=== PATIENT | female | born 1975 | race Caucasian/White ===

== ENCOUNTER → 2021-01-25 | Outpatient (CLI) | payer BC ==
[~2021-01-25] MED LIST: CITA20; ERGO400 PO; LEVSOD75 PO; METPRE4DP PO; Percocet 5-3251 EACH PO; Robaxin-750750 MG PO; SERT100 PO; TOCO400; [UNRECOGNIZED DRUG - OTHER] PO
== END ==
LOC: LAB 10:30 → LAB SHORT 10:30 → LAB FUT 01-25 09:55 → EDSTATUS 01-25 09:55
DX: R19.7 Diarrhea, unspecified (principal)
CPT/HCPCS: 87015; 87045; 87046; 87205; 87899

== ENCOUNTER 2021-03-05 10:12 | Day surgery (SDC) | payer BC ==
[~2021-03-05] VITALS: Ht 170.2 cm; Wt 86.7 kg
[2021-03-05] MEDS ORDERED: FISH OIL 1,2001 EAC7 (10:44)
--- NOTE | 2021-03-05 12:39 | NUR ---
03/05/21 1239 Kaelyn Muniz PT C/O NAUSEA, ZOFRAN IV OFFERED PER DR. HERBERT. PT DRINKING WATER, TOLERATING WELL, DENIES NEED FOR NAUSEA MEDS AT THIS TIME.
== END 2021-03-05 12:17 | disposition home or self-care (01) ==
LOC: ORSCSDS 10:12
PROVIDERS: Internal Medicine Gastroenterology
PROC: 0DBE8ZX Excision of Large Intestine, Via Natural or Artificial Opening Endoscopic, Diagnostic (ICD-10-PCS; principal; 2021-03-05 11:30)
DX: R10.30 Lower abdominal pain, unspecified (principal); R19.7 Diarrhea, unspecified; K64.8 Other hemorrhoids; K57.30 Diverticulosis of large intestine without perforation or abscess without bleeding; K52.89 Other specified noninfective gastroenteritis and colitis; K52.832 Lymphocytic colitis; K62.5 Hemorrhage of anus and rectum; Z79.899 Other long term (current) drug therapy
CPT/HCPCS: 88305; J2704; J7120

== ENCOUNTER → 2022-08-08 | Outpatient (CLI) | payer BC ==
[~2022-08-08] MED LIST changes: +FISH OIL 1,2001 EAC7
[2022-08-09 10:38] LABS: Hematocrit 45.4 % (33.0-51.0); Mean Corpuscular HGB 32.9 pg (26.0-34.0); Mean Corpuscular HGB Conc 30.8 g/dL (31.5-36.5); Mean Corpuscular Volume 107 fL (80-100); Mean Platelet Volume 12.6 fL (9.1-12.4); Platelet Count 204 K/mm3 (150-400); RDW Coefficient Variation 12.6 % (11.7-14.2); RDW Standard Deviation 49.8 fL (35.1-46.3); Red Blood Cell Count 4.26 M/mm3 (3.80-5.20); White Blood Cell Count 5.64 K/mm3 (4.00-11.30)
== END ==
LOC: LAB SHORT 09:50 → LAB 09:50
PROVIDERS: Nurse Practitioner Family
DX: E03.9 Hypothyroidism, unspecified (principal); I49.9 Cardiac arrhythmia, unspecified; N95.9 Unspecified menopausal and perimenopausal disorder; Z86.16 Personal history of COVID-19
CPT/HCPCS: 85027

== ENCOUNTER → 2024-08-13 | Outpatient (CLI) | payer BC | LOC: LAB 18:25 → LAB SHORT 18:25 | DX: R30.0 Dysuria (principal) | CPT/HCPCS: 87086 ==

== ENCOUNTER → 2024-08-19 | Outpatient (CLI) | payer BC ==
[2024-08-19 20:31] LABS: Candida glabrata-krusei, PCR NOT DETECTED (NOT DETECT)
[2024-08-19 20:41] LABS: Bacterial Vaginosis PCR Positive (NEGATIVE); Candida Group, PCR DETECTED (NOT DETECT)
[2024-08-19 21:03] LABS: Chlamydia Trachomatis Urine NOT DETECTED (NOT DETECT); Neisseria Gonorrhoea Urine NOT DETECTED (NOT DETECT)
== END ==
LOC: LAB SHORT 19:22 → LAB 19:22
PROVIDERS: Physician Assistant
DX: R30.0 Dysuria (principal); R10.9 Unspecified abdominal pain
CPT/HCPCS: 87086; 87481; 87491; 87591; 87661; 87801